=== PATIENT | male | born 1975 | race Caucasian/White ===

== ENCOUNTER 2020-05-26 11:23 | Emergency (ER) | payer MEDICAID ==
[~2020-05-26] VITALS: Ht 170.2 cm; Wt 81.8 kg
[2020-05-26] MEDS ORDERED: METF-960 PO (11:48)
[2020-05-26] MEDS ORDERED: AMIT75 PO (11:48)
[2020-05-26] MEDS ORDERED: UNKNOWN BP MED PO (11:48)
[2020-05-26] MEDS ORDERED: KETOROLAC TROMETHAMINE 60 MG/2 ML VIAL IM ONE (13:15)
[2020-05-26] MEDS ORDERED: METOCLOPRAMIDE HCL 10 MG TABLET PO ONE (13:15)
[2020-05-26 15:10] VITALS: BP 115/74
[2020-05-30 10:48] LABS: GLUCOSE,POINT OF CARE 104 MG/DL (70-110)
== END 2020-05-26 15:42 | disposition home or self-care (01) ==
LOC: EMS 12:20
DX: G43.909 Migraine, unspecified, not intractable, without status migrainosus (principal); E11.9 Type 2 diabetes mellitus without complications; E78.00 Pure hypercholesterolemia, unspecified; Z79.84 Long term (current) use of oral hypoglycemic drugs
CPT/HCPCS: 36415; 82962; 85651; 96372; 99283; J1885